=== PATIENT | female | born 1955 | race Caucasian/White ===

== ENCOUNTER 2022-08-12 15:16 | Emergency (ER) | payer MEDICARE, SELFPAY ==
--- NOTE | 2022-08-12 15:20 | XRR_ITS ---
PROCEDURE INFORMATION: Exam: XR Right Ribs with PA Chest Exam date and time: 08/12/2022 4:38 PM Age: 66 years old Clinical indication: Injury or trauma; Fall; Rib area; Sprain or strain; Additional info: Chest and ribs TECHNIQUE: Imaging protocol: Radiologic exam of the Right ribs with PA chest. Views: 3 views COMPARISON: CR XR cervical spine 3V* [id number] 08/12/2022 4:26 PM FINDINGS: Lungs: Unremarkable. No consolidation. Pleural spaces: Unremarkable. No pleural effusion. No pneumothorax. Heart/Mediastinum: Unremarkable. No cardiomegaly. Bones/joints: Unremarkable. XR/XR ribs RT mn 3V w CXR1V [id number] IMPRESSION: No acute findings.
--- NOTE | 2022-08-12 15:21 | ECG_ITS ---
[facility] Test Date: 2022-08-12 Pat Name: Kemi Elder Department: Room: Gender: Female Public Health Technician: : 1955 Requested By: Austin Hayes Order Number: [id number] Angie MD: Tejas Elias M.D. Measurements Intervals [place] Rate: 69 P: 15 DC: 161 QRS: 57 QRSD: 81 T: -83 QT: 385 QTc: 415 Interpretive Statements SINUS RHYTHM ST DEVIATION AND MODERATE T-WAVE ABNORMALITY, CONSIDER INFERIOR ISCHEMIA [-0.1+ mV T-WAVE IN II/aVF] No previous ECG available for comparison Electronically Signed On 08-12-2022 16:50:37 CDT by Tejas Elias M.D. [id number]
[2022-08-12 15:23] VITALS: BP 232/98; PULSE 72; RESP 19; TEMP 36.6; O2SAT 97; BMI 27.4
[2022-08-12 15:32] VITALS: PULSE 75; O2SAT 96
--- NOTE | 2022-08-12 15:35 | ED_ITS ---
HPI - Fall General: Chief Complaint: Fall Stated Complaint: Right side rib pain, face pain Time Seen by Provider: 08/12/22 15:20 History of Present Illness: 58-year-old female was walking outside in a parking lot stumbled on a parking block tripped and fell she [place] landed on her right ribs and her right knee she did not lose consciousness. She is on Plavix she has been awake and alert the whole time no nausea or vomiting she had discomfort on her right knee was unable to walk was brought in by EMS. She has a small abrasion on the bridge of her nose and on the right knee no other injuries. No vomiting no chest pain. She does have chest wall pain with palpation and pain with deep inspiration. MD complaint: fall Onset (ago): minute(s) Fall from: standing Fall witnessed: yes, by family Place fall occurred: street Loss of consciousness: None Prolonged down time: no Context: tripped/slipped Location of injury: face and chest Location of injury - extremities: Right: knee Severity: mild Associated symptoms-after fall: Reports chest pain and difficulty walking; Denies abdominal pain, confusion, headache(s), hematuria, lightheadedness, neck pain, numbness, short of breath, vertigo or weakness Review of Systems Card: Reports: chest pain; Denies: lightheadedness GI: Denies: abdominal pain : Denies: hematuria Musc: Denies: neck pain Neuro: Reports: difficulty walking; Denies: headache(s), vertigo or confusion PFS ED PFSH: Medical History (Updated 08/23/22 @ 09:13 by Austin Durant DO) No significant past medical history Surgical History (Updated 08/23/22 @ 09:13 by Austin Durant DO) No significant past surgical history Physical Exam Const: COMMON NORMALS: no acute distress GENERAL APPEARANCE: cooperative and comfortable ORIENTATION/CONSCIOUSNESS: Yes awake, Yes oriented to person, Yes oriented to place and Yes oriented to time HENMT: COMMON NORMALS: normocephalic, atraumatic, hearing grossly normal bilaterally, external ears normal, EAC's normal, TM's normal bilaterally and Normal nasal mucous membranes and turbinates present HEAD & SCALP: normocephalic and atraumatic NOSE: Normal nasal mucous membranes and turbinates present EXTERNAL EAR: Yes external ears normal EXTERNAL AUDITORY CANAL: EAC's normal TYMPANIC MEMBRANE: TM's normal bilaterally Eye: COMMON NORMALS: Equal, round and reactive pupils present, EOMs intact bilaterally, conjunctivae normal and no scleral icterus CONJUNCTIVA: Yes conjunctivae normal PUPIL: Yes Equal, round and reactive pupils present Neck/C-Spine: COMMON NORMALS: full ROM, no lymphadenopathy, supple and no JVD Resp: COMMON NORMALS: normal respiratory effort, No retractions, No use of accessory muscles and clear to auscultation bilaterally AUSCULTATION: clear to auscultation bilaterally Cardio: COMMON NORMALS: no JVD, regular rate, regular rhythm and No murmurs present (Cardio) RATE: regular rate RHYTHM: regular rhythm GI: COMMON NORMALS: Soft to palpation and No hepatosplenomegaly present AUSCULTATION: Yes normoactive bowel sounds PALPATION: Yes Soft to palpation, No Tenderness to palpation present (GI), No Guarding due to palpation present (GI) and Yes No hepatosplenomegaly present Extremity: COMMON NORMALS: normal to inspection, capillary refill normal, no clubbing, cyanosis or edema, no calf tenderness and no pedal edema Neuro: SENSORIUM/ORIENTATION: Yes oriented to person, Yes oriented to place an d Yes oriented to time Skin: COMMON NORMALS: no rashes or lesions noted GENERAL SKIN EXAM: no rashes or lesions noted Course Vital Signs: Vital signs: Vital Signs Temperature 97.9 F 08/12/22 15:23 Pulse Rate 68 08/12/22 18:50 Respiratory Rate 18 08/12/22 15:52 Blood Pressure 179/77 08/12/22 18:50 Pulse Oximetry 95 08/12/22 18:50 Oxygen Delivery Me thod 08/12/22 15:32 MDM - Fall Medical Decision Making Labs and imaging reviewed no fractures discharge patient home. Tizanidine and diclofenac to use as needed. Patient able ambulate without difficulty. Medical Records I reviewed the patient's medical records. Lab Data I reviewed the patient's lab results. : 08/12/22 15:45 08/12/22 15:45 Radiology Impressions Ribs X-Ray 08/12/22 15:20 IMPRESSION: No acute findings. Knee X-Ray 08/12/22 15:39 IMPRESSION: Mild to moderate tricompartmental osteoarthritis of the knee. Head CT 08/12/22 15:42 IMPRESSION: 1. Nonspecific incompletely imaged masslike lesion lateral left retropharynx/prevertebral space at the C1 level. Comparison with prior studies recommended, if available. Otherwise additional imaging (nonemergent MRI) recommended. 2. Age appropriate supratentorial and infratentorial atrophy. 3. Moderate chronic white matter microvascular ischemic disease. 4. No acute intracranial injury identified. Cervical Spine X-Ray 08/12/22 18:12 IMPRESSION: 1. Negative for fracture or dislocation, however, exam is limited given only lateral images are included, consider further evaluation with AP view. 2. Mid to lower cervical spine [id number] disc space narrowing and degenerative disc calcification. Laboratory Results WBC 6.0 10^3/uL (4.0-10.0) 08/12/22 15:45 RBC 4.64 10^6/uL (4.1-5.3) 08/12/22 15:45 Hgb 13.6 g/dL (11.5-15.3) 08/12/22 15:45 Hct 41.2 % (37.0-47.0) 08/12/22 15:45 MCV 88.8 fl (81-99) 08/12/22 15:45 MCH 29.3 pg (28.0-34.0) 08/12/22 15:45 MCHC 33.0 g/dL (30.0-36.0) 08/12/22 15:45 RDW 12.8 % (12.1-15.1) 08/12/22 15:45 Plt Count 375 10^3/cmm (130-400) 08/12/22 15:45 MPV 9.6 fL (7.4-10.4) 08/12/22 15:45 Neut % (Auto) 50.5 % 08/12/22 15:45 Lymph % (Auto) 38.5 % 08/12/22 15:45 [place] % (Auto) 8.3 % 08/12/22 15:45 Eos % (Auto) 1.3 % 08/12/22 15:45 Baso % (Auto) 0.7 % 08/12/22 15:45 Neut # (Auto) 3.04 10^3/uL (1.8-7.7) 08/12/22 15:45 Lymph # (Auto) 2.3 10^3/uL (0.8-4.8) 08/12/22 15:45 [place] # (Auto) 0.5 10^3/uL (0.2-0.9) 08/12/22 15:45 Eos # (Auto) 0.1 10^3/uL (0.0-0.8) 08/12/22 15:45 Baso # (Auto) 0.0 10^3/uL (0.0-0.1) 08/12/22 15:45 Nucleated RBC % (auto) 0 % 08/12/22 15:45 Nucleated RBCs # 0.0 /100WBC 08/12/22 15:45 Sodium 138 mmol/L (136-145) 08/12/22 15:45 Potassium 4.1 mmol/L (3.5-5.1) 08/12/22 15:45 Chloride 101 mmol/L (98-107) 08/12/22 15:45 Carbon Dioxide 23 mmol/L (22-29) 08/12/22 15:45 Anion Gap 18.1 (5-19) 08/12/22 15:45 BUN 13 mg/dL (8-23) 08/12/22 15:45 Creatinine 0.8 mg/dL (0.5-0.9) 08/12/22 15:45 GFR Calculation 71.3 mL/min (90-130) L 08/12/22 15:45 Glucose 178 mg/dL (65-115) H 08/12/22 15:45 Calculated Osmolality 291 mOsm/kg (285-295) 08/12/22 15:45 Calcium 10.0 mg/dL (8.5-10.5) 08/12/22 15:45 Total Bilirubin 0.4 mg/dL (0.15-1.2) 08/12/22 15:45 AST 30 U/L (0-32) 08/12/22 15:45 ALT 26 U/L (0-33) 08/12/22 15:45 Alkaline Phosphatase 60 U/L (35-105) 08/12/22 15:45 Total Protein 7.7 g/dL (6.6-8.7) 08/12/22 15:45 Albumin 4.5 g/dL (3.5-5.2) 10/21/22 15:45 Globulin 3.2 g/dL (1.3-4.6) 08/12/22 15:45 Discharge Plan Discharge Patient Disposition: Home Clinical Impression: Fall Condition: Stable Prescriptions: New diclofenac sodium 75 mg tablet,delayed release (DR/EC) 75 mg PO Q12H PRN (Reason: pain) Qty: 20 0RF Zanaflex 4 mg capsule 4 mg PO Q8H PRN (Reason: muscle spasticity) Qty: 20 0RF Discharge Orders: Discharge ED (Routine); Ordered 08/12/22 Ordered By: Austin Durant Discharge Diet: Usual diet Discharge Activity: Increase activity as tolerated Patient Instructions: Opioid Safety, Pain Management Activity Restrictions/Additional Instructions: Use diclofenac and tizanidine as needed for pain. Follow-up with your primary care doctor if worsening or symptoms do not improve. Coding Level of Care Code ED Gang Punch Operator for Viviane Kearney
--- NOTE | 2022-08-12 15:39 | XRR_ITS ---
PROCEDURE INFORMATION: Exam: XR Right Knee Exam date and time: 08/12/2022 4:20 PM Age: 66 years old Clinical indication: Pain; Knee; Right TECHNIQUE: Imaging protocol: Radiologic exam of the Right knee. Views: 3 views. COMPARISON: No relevant prior studies available. FINDINGS: Bones/joints: Mild to moderate tricompartmental osteoarthritis of the knee. Soft tissues: Normal. XR/XR knee RT 3V* [id number] IMPRESSION: Mild to moderate tricompartmental osteoarthritis of the knee.
--- NOTE | 2022-08-12 15:42 | CTR_ITS ---
PROCEDURE INFORMATION: Exam: CT Head Without Contrast Exam date and time: 08/12/2022 4:08 PM Age: 66 years old Clinical indication: Injury or trauma; Fall; Blunt trauma (contusions or hematomas); Additional info: Closed head injury TECHNIQUE: Imaging protocol: Computed tomography of the head without contrast. Radiation optimization: All CT scans at this facility use at least one of these dose optimization techniques: automated exposure control; mA and/or kV adjustment per patient size (includes targeted exams where dose is matched to clinical indication); or iterative reconstruction. COMPARISON: No relevant prior studies available. RADIATION DOSE METRICS: Total DLP (mGy-cm): 1185.04 FINDINGS: Brain: Moderate hypoattenuating foci are noted in the posterior superior periatrial and anterior lateral ventricular periventricular white matter bilaterally. Mild bilateral globus pallidus calcifications. No intracranial hemorrhage. No mass or acute cortical infarction identified. Ventricles: Prominence of the ventricular system and subarachnoid spaces is consistent with the patient's age of 66 years. Paranasal sinuses: Visualized sinuses are unremarkable. No fluid levels. Mastoid air cells: Visualized mastoid air cells are well aerated. Bones/joints: See Soft tissues finding. Soft tissues: Nonspecific incompletely imaged masslike lesion lateral left retropharynx/prevertebral space at the C1 level measuring at least 2.4 x 1.9 cm in the transverse dimension. This appears to be separate from the skull base (series 8, image 38). Vasculature: Atherosclerotic calcifications are present involving the carotid artery siphons bilaterally. CT/CT head wo con* [id number] IMPRESSION: 1. Nonspecific incompletely imaged masslike lesion lateral left retropharynx/prevertebral space at the C1 level. Comparison with prior studies recommended, if available. Otherwise additional imaging (nonemergent MRI) recommended. 2. Age appropriate supratentorial and infratentorial atrophy. 3. Moderate chronic white matter microvascular ischemic disease. 4. No acute intracranial injury identified.
--- NOTE | 2022-08-12 15:42 | XRR_ITS ---
PROCEDURE INFORMATION: Exam: XR Cervical Spine Exam date and time: 08/12/2022 4:26 PM Age: 66 years old Clinical indication: Injury or trauma; Fall; Blunt trauma and sprain or strain, cervical ligaments; Additional info: Trauma fall TECHNIQUE: Imaging protocol: Radiologic exam of the cervical spine. Views: Frontal and lateral, 2 views. COMPARISON: CT head wo con* [id number] 08/12/2022 4:08 PM FINDINGS: Bones/joints: No fracture as visualized. . No malalignment. The posterior spinous processes of C4 and caudally are partially excluded. Moderate right C4-C5 and C5-C6 primary facet osteoarthritis. Soft tissues: Unremarkable. XR/XR cervical spine 3V* [id number] IMPRESSION: No fracture as visualized. Repeat lateral image to include the lower posterior spinous processes, and AP open-mouth odontoid view recommended for further evaluation.
[2022-08-12 15:52] VITALS: RESP 18
[2022-08-12] MEDS: morphine 4 mg/mL SDV 1 mL IVP (15:52)
[2022-08-12 16:03] LABS: Basophils % 0.7 %; Eosinophils # 0.1 10^3/uL (0.0-0.8); Eosinophils % 1.3 %; Hematocrit 41.2 % (37.0-47.0); Hemoglobin 13.6 g/dL (11.5-15.3); Lymphocytes # 2.3 10^3/uL (0.8-4.8); Lymphocytes % 38.5 %; Mean Corpuscular Hemoglobin 29.3 pg (28.0-34.0); Mean Corpuscular Volume 88.8 fl (81-99); Mean Platelet Volume 9.6 fL (7.4-10.4); Monocytes # 0.5 10^3/uL (0.2-0.9); Monocytes % 8.3 %; Neutrophils # 3.04 10^3/uL (1.8-7.7); Neutrophils % 50.5 %; Nucleated Red Blood Cells % 0 %; Platelet Count 375 10^3/cmm (130-400); Red Blood Count 4.64 10^6/uL (4.1-5.3); Red Cell Distribution Width 12.8 % (12.1-15.1)
[2022-08-12 16:35] LABS: Alanine Aminotransferase 26 U/L (0-33); Albumin Level 4.5 g/dL (3.5-5.2); Alkaline Phosphatase 60 U/L (35-105); Anion Gap 18.1 (5-19); Aspartate Amino Transferase 30 U/L (0-32); Blood Urea Nitrogen 13 mg/dL (8-23); Carbon Dioxide 23 mmol/L (22-29); Chloride 101 mmol/L (98-107); Globulin 3.2 g/dL (1.3-4.6); Glomerular Filtration Rate 71.3 mL/min (90-130); Glucose 178 mg/dL (65-115); Osmolality Calculated 291 mOsm/kg (285-295); Potassium 4.1 mmol/L (3.5-5.1); Sodium 138 mmol/L (136-145); Total Bilirubin 0.4 mg/dL (0.15-1.2); Total Protein 7.7 g/dL (6.6-8.7)
[2022-08-12 17:32] VITALS: BP 190/95; O2SAT 97
--- NOTE | 2022-08-12 18:12 | XRR_ITS ---
PROCEDURE INFORMATION: Exam: XR Spine; Cervical Exam date and time: 08/12/2022 6:37 PM Age: 66 years old Clinical indication: Injury or trauma; Fall TECHNIQUE: Imaging protocol: XR of the spine. Exam focused on the cervical spine. Views: 1 view. COMPARISON: CR XR cervical spine 3V* [id number] 08/12/2022 4:26 PM FINDINGS: Bones/joints: Mid to lower cervical spine [id number] disc space narrowing and degenerative disc calcification. Soft tissues: Normal. XR/XR cervical spine 1V [id number] IMPRESSION: 1. Negative for fracture or dislocation, however, exam is limited given only lateral images are included, consider further evaluation with AP view. 2. Mid to lower cervical spine [id number] disc space narrowing and degenerative disc calcification.
[2022-08-12 18:50] VITALS: BP 179/77; PULSE 68; O2SAT 95
== END 2022-08-12 19:01 | disposition home or self-care (01) ==
PROVIDERS: Emergency Provider Family Medicine
DX: S00.31XA Abrasion of nose, initial encounter (principal); S80.211A Abrasion, right knee, initial encounter; W18.09XA Striking against other object with subsequent fall, initial encounter
CPT/HCPCS: 70450; 71101; 72020; 72040; 73562; 80053; 85025; 93005; 96374; 99285; J2270

== ENCOUNTER → 2022-11-01 11:05 | Outpatient (BNVA) | payer MEDICARE, SELFPAY | PROVIDERS: Visit Provider Emergency Medicine | DX: J01.00 Acute maxillary sinusitis, unspecified (principal); R68.89 Other general symptoms and signs; H66.002 Acute suppurative otitis media without spontaneous rupture of ear drum, left ear | CPT/HCPCS: 87400 ==

== ENCOUNTER → 2022-11-28 11:08 | Outpatient (BNVA) | payer MEDICARE, SELFPAY | PROVIDERS: Visit Provider Family Medicine | DX: R30.0 Dysuria (principal); E78.5 Hyperlipidemia, unspecified; E11.9 Type 2 diabetes mellitus without complications; I10 Essential (primary) hypertension | CPT/HCPCS: 80053; 80061; 81000; 83036; 83721; 87077; 87086; 87184 ==

== ENCOUNTER → 2022-12-15 15:20 | Outpatient (BNVA) | payer MEDICARE, SELFPAY | PROVIDERS: PCP Family Medicine; Referring Provider Family Medicine; Visit Provider Surgery | DX: K21.9 Gastro-esophageal reflux disease without esophagitis (principal) | CPT/HCPCS: 99203 ==

== ENCOUNTER 2022-12-28 05:27 | Day surgery (SDC) | payer MEDICARE, SELFPAY ==
[2022-12-26 08:14] VITALS: BMI 29.1
[2022-12-28 06:04] VITALS: BP 184/107; PULSE 70; RESP 18; TEMP 36.1; O2SAT 97
[2022-12-28] MEDS: sodium chloride 0.9% 1,000 ML 30 ML IV (06:19)
[2022-12-28 06:26] LABS: Glucose Point of Care 182 mg/dL (70-110)
--- NOTE | 2022-12-28 06:27 | ANES.PREANE2 ---
Pre-Anesthetic Assessment Height/Weight: Height 1.65 m Weight 79.379 kg Temp Pulse Resp BP Pulse Ox O2 Del Method 97 F L 70 18 184/107 97 12/28/22 06:04 12/28/22 06:04 12/28/22 06:04 12/28/22 06:04 12/28/22 06:04 12/28/22 06:04 Preop Diagnosis: GERD Operation Date: 12/28/22 07:00 Proposed Procedures p [id number] egd : K21.9(Not Applicable) - Lukas Jose DO Familial anesthetic complications: none Was Beta Jfef taken within 24 hours: Yes Last intake: Intake Last Liquid Date 12/27/22 Last Liquid Time 20:00 Last Solid Date 12/27/22 Last Solid Time 20:00 Social No alcohol and No tobacco Exam alert, oriented x 3, clear to auscultation bilaterally and regular rate & rhythm Airway Submandibular: within normal limits Cervical ROM: within normal limits Mallampati: Class I Dentition: false Comments: Comments: deviated septum per patient. Left sided mass in neck per patient MRI and CT currently monitoring due to location and nerve involvement. 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.) CV/HEM Arrythmia (PVCs), Hypertension and Murmur None reported Hepatic None reported GI Gastroesophageal Reflux Disease Metabolic Diabetes Mellitus and Hyperlipidemia [facility] [place] None reported Neuropsych Cerebrovascular Accident (2014 right sided numbness face and forearm.) Anesthetic Plan ASA status: 3 Anesthesia: MAC Medications/Allergies Home Medications Medication Instructions Recorded Confirmed Last Taken Type amlodipine 10 mg tablet 10 mg PO DAILY 90 days #90 tabs 11/28/22 12/26/22 12/27/22 Rx benzonatate 100 mg capsule 100 mg PO BID PRN cough 30 days 11/28/22 12/26/22 Unknown Rx #60 caps cetirizine 10 mg tablet (Zyrtec) 10 mg PO DAILY 90 days #90 tabs 11/28/22 12/26/22 12/27/22 Rx clopidogrel 75 mg tablet 75 mg PO DAILY 90 days #90 tabs 11/28/22 12/26/22 12/22/22 Rx ezetimibe 10 mg tablet 10 mg PO DAILY 90 days #90 tabs 11/28/22 12/26/22 12/27/22 Rx fenofibrate nanocrystallized 145 145 mg PO DAILY 90 days #90 tabs 11/28/22 12/26/22 12/27/22 Rx mg tablet fluoxetine 10 mg tablet 10 mg PO DAILY 90 days #90 tabs 11/28/22 12/26/22 12/27/22 Rx gabapentin 300 mg capsule 300 mg PO TID 30 days #90 caps 11/28/22 12/26/22 12/27/22 Rx losartan 100 mg tablet 100 mg PO DAILY 90 days #90 tabs 11/28/22 12/26/22 12/27/22 Rx metformin 1,000 mg tablet 1,000 mg PO BID 90 days #180 tabs 11/28/22 12/26/22 12/27/22 Rx metoprolol succinate 100 mg 100 mg PO BID 90 days #180 tabs 11/28/22 12/26/22 12/28/22 04:00 Rx tablet,extended release 24 hr pantoprazole 40 mg tablet,delayed 40 mg PO BID 6 weeks #84 tabs 12/15/22 12/26/22 12/27/22 Rx release (Protonix) Allergies Allergy/AdvReac Type Severity Reaction Status Date / Time Rnfihhe-HXF-EfF Reductase Allergy Intermediate severe Verified 12/15/22 15:24 Inhibitor hives Current Medications Generic Name Dose Route Start Last Admin Trade Name Freq PRN Reason Stop Dose Admin Sodium Chloride 1,000 mls @ 30 mls/hr 12/28/22 05:45 12/28/22 06:19 Sodium Chloride 0.9% IV 12/29/22 05:44 30 mls/hr .Q24H AMARILYS Administration PFSH Anesthesia Medical History History of trigger finger No significant past medical history Surgical History (Updated 12/15/22 @ 16:32 by Lukas Jose DO) History of appendectomy History of carpal tunnel release History of hemorrhoidectomy Error History of hysterectomy History of rotator cuff surgery Bilateral No significant past surgical history Family History Brother Cancer prostate and liver Hypertension Sister Cancer uterine Diabetes Hypertension Mother Hypertension Stroke Father Hypertension Grandmother Stroke maternal Denies family history of Clotting disorder Chronic kidney disease (CKD) Bleeding disorder Thyroid disease Data Anesthesia Cardiac Studies: No Data to Display
--- NOTE | 2022-12-28 07:02 | W.PM.OPSUD ---
Surgery/Procedure H&P Update DATE OF PROCEDURE: December 28, 2022 DATE H&P PERFORMED: 12/15/22 H&P UPDATE INFORMATION: I have reviewed H&P completed within last 30 days, I have examined patient prior to procedure and No changes to prior documentation PREOP DIAGNOSIS: GERD PLANNED PROCEDURE: Operation Date: 12/28/22 07:00 Proposed Procedures p [id number] egd : K21.9(Not Applicable) - Lukas Jose DO
[2022-12-28 07:21] VITALS: BP 152/67; PULSE 62; RESP 14; TEMP 36.1; O2SAT 94
[2022-12-28 07:34] VITALS: BP 171/74; PULSE 63; RESP 16; O2SAT 95
--- NOTE | 2022-12-28 14:27 | ANE.PACU2 ---
Inpatient post-anesthesia follow up: Airway intact: Yes Vital signs: Temperature 97 F Pulse Rate 63 Respiratory Rate 16 Blood Pressure 171/74 Pulse Oximetry 95 Oxygen Delivery Me thod Room Air Oxygen Flow Rate Fraction of Inspir ed Oxygen Hydration adequate: Yes Nausea and vomiting: No Pain level: 1 Mental status: Baseline
== END 2022-12-28 07:50 | disposition home or self-care (01) ==
PROVIDERS: PCP Family Medicine; Visit Provider Surgery
PROC: 0DJ08ZZ Inspection of Upper Intestinal Tract, Via Natural or Artificial Opening Endoscopic (ICD-10-PCS; CPT 43235; principal; 2022-12-28 07:00)
DX: K29.50 Unspecified chronic gastritis without bleeding (principal); K21.9 Gastro-esophageal reflux disease without esophagitis; E11.9 Type 2 diabetes mellitus without complications; I10 Essential (primary) hypertension; E78.5 Hyperlipidemia, unspecified; Z79.84 Long term (current) use of oral hypoglycemic drugs; Z86.16 Personal history of COVID-19; Z86.73 Personal history of transient ischemic attack (TIA), and cerebral infarction without residual deficits
CPT/HCPCS: 36416; 43239; 82962; 88305; 88342; J2704; J7030

== ENCOUNTER → 2023-01-17 15:48 | Outpatient (BNVA) | payer MEDICARE, SELFPAY | PROVIDERS: PCP Family Medicine; Visit Provider Surgery | DX: K21.9 Gastro-esophageal reflux disease without esophagitis (principal); R10.9 Unspecified abdominal pain | CPT/HCPCS: 99024; 99212 ==

== ENCOUNTER → 2023-02-07 13:30 | Outpatient (BNVA) | payer MEDICARE, SELFPAY | PROVIDERS: PCP Family Medicine; Visit Provider Nurse Practitioner Family | DX: R10.9 Unspecified abdominal pain (principal) | CPT/HCPCS: 80053; 81000; 83690; 85025 ==

== ENCOUNTER → 2023-02-20 11:19 | Outpatient (BNVA) | payer MEDICARE, SELFPAY | PROVIDERS: PCP Family Medicine; Visit Provider Family Medicine | DX: K21.9 Gastro-esophageal reflux disease without esophagitis (principal); B37.31 Acute candidiasis of vulva and vagina; M25.551 Pain in right hip; M25.552 Pain in left hip; G89.29 Other chronic pain; M54.50 Low back pain, unspecified; M54.9 Dorsalgia, unspecified; I10 Essential (primary) hypertension; Z86.73 Personal history of transient ischemic attack (TIA), and cerebral infarction without residual deficits; E78.2 Mixed hyperlipidemia; E11.9 Type 2 diabetes mellitus without complications; Z87.440 Personal history of urinary (tract) infections | CPT/HCPCS: 72100; 73523 ==

== ENCOUNTER → 2023-02-24 13:28 | Outpatient (BNVA) | payer MEDICARE, SELFPAY | PROVIDERS: PCP Family Medicine; Visit Provider Family Medicine | DX: R30.0 Dysuria (principal) | CPT/HCPCS: 81000; 87086 ==

== ENCOUNTER → 2023-03-15 09:56 | Outpatient (BNVA) | payer MEDICARE, SELFPAY | PROVIDERS: PCP Family Medicine; Visit Provider Anesthesiology Pain Medicine | DX: M51.16 Intervertebral disc disorders with radiculopathy, lumbar region (principal); M25.551 Pain in right hip | CPT/HCPCS: 99204 ==

== ENCOUNTER 2023-04-12 12:40 | Outpatient (CLI) | payer MEDICARE, SELFPAY ==
--- NOTE | 2023-04-12 13:00 | MR_ITS ---
WS: [id number] MRI LUMBAR SPINE NONCONTRAST HISTORY: M51.16 - Intervertebral disc disorders with radiculopathy... COMPARISON: None available. TECHNIQUE: Sagittal and axial multisequence imaging is submitted. Normal lumbar alignment. There is a small amount of reactive marrow edema in the adjacent L3-4 endpla kristopher. No fractures. Mild disc space narrowing at L3-4 and L4-5. Conus terminates normally at L1-2 disc level. L1-L2: Normal. L2-L3: Very shallow LEFT foraminal disc protrusion. This disc protrusion does minimally contact the e xiting LEFT L2 nerve root. No significant stenosis. L3-L4: Moderate diffuse annular disc bulging. Shallow central disc protrusion. There are additional s maller, shallow disc protrusions in the foramen. Encroachment upon the ventral thecal sac with efface ment of CSF. There is mild to moderate central with bilateral subarticular recess and mild foraminal stenosis. Disc contact of on the traversing L4 nerve roots. There is fluid in the facet joints. L4-L5: Annular disc bulge with a moderate central disc protrusion. Deformity of the ventral thecal sa c. Marked ligamentum flavum and facet arthritis. Moderate to severe central with bilateral subarticul ar recess stenosis. Greater encroachment and deformity on the traversing RIGHT L5 nerve root. Mild fo raminal stenosis. L5-S1: Very shallow RIGHT paracentral disc protrusion. No stenosis. No significant nerve root contact . MR/MR lumbar spine wo con* [id number] IMPRESSION: 1. L4-5: Moderate to severe central with bilateral subarticular recess and mil d foraminal stenosis. Most significant encroachment upon the traversing RIGHT L 5 nerve root. 2. L3-4: Mild to moderate central with bilateral subarticular recess and mild foraminal stenosis at L3-4. There is disc contacting the traversing L4 nerve ro ots. Additional shallow central disc protrusion and bilateral foraminal disc pr otrusions. 3. Small LEFT foraminal disc protrusion at L2-3 with mild contact on the exiti ng LEFT L2 nerve root.
== END 2023-04-12 12:41 | disposition home or self-care (01) ==
LOC: RAD 12:43
PROVIDERS: PCP Family Medicine; Visit Provider Anesthesiology Pain Medicine
DX: M51.16 Intervertebral disc disorders with radiculopathy, lumbar region (principal); M48.061 Spinal stenosis, lumbar region without neurogenic claudication
CPT/HCPCS: 72148

== ENCOUNTER → 2023-05-01 09:54 | Outpatient (BNVA) | payer MEDICARE, SELFPAY | PROVIDERS: PCP Family Medicine; Visit Provider Anesthesiology Pain Medicine | DX: G89.29 Other chronic pain (principal); M51.16 Intervertebral disc disorders with radiculopathy, lumbar region; M16.11 Unilateral primary osteoarthritis, right hip | CPT/HCPCS: 99214 ==

== ENCOUNTER → 2023-05-16 13:33 | Outpatient (BNVA) | payer MEDICARE, SELFPAY | PROVIDERS: PCP Family Medicine; Visit Provider Anesthesiology Pain Medicine | DX: G89.29 Other chronic pain (principal); M51.16 Intervertebral disc disorders with radiculopathy, lumbar region; M16.0 Bilateral primary osteoarthritis of hip | CPT/HCPCS: 64483; 64484; J1100; J3490 ==

== ENCOUNTER → 2023-06-07 12:38 | Outpatient (BNVA) | payer MEDICARE, SELFPAY | PROVIDERS: PCP Family Medicine; Visit Provider Anesthesiology Pain Medicine | DX: M54.16 Radiculopathy, lumbar region (principal) | CPT/HCPCS: 64483; 64484; J1100; J3490 ==

== ENCOUNTER → 2023-06-21 08:46 | Outpatient (BNVA) | payer MEDICARE, SELFPAY | PROVIDERS: PCP Family Medicine; Visit Provider Anesthesiology Pain Medicine | DX: G89.29 Other chronic pain; M25.551 Pain in right hip; M51.16 Intervertebral disc disorders with radiculopathy, lumbar region | CPT/HCPCS: 99214 ==

== ENCOUNTER → 2023-07-03 13:57 | Outpatient (BNVA) | payer MEDICARE, SELFPAY | PROVIDERS: PCP Family Medicine; Visit Provider Family Medicine | DX: N39.0 Urinary tract infection, site not specified (principal); K21.9 Gastro-esophageal reflux disease without esophagitis; I10 Essential (primary) hypertension; E11.9 Type 2 diabetes mellitus without complications; G89.4 Chronic pain syndrome; M54.9 Dorsalgia, unspecified; F32.9 Major depressive disorder, single episode, unspecified; B37.31 Acute candidiasis of vulva and vagina; E78.5 Hyperlipidemia, unspecified; Z86.73 Personal history of transient ischemic attack (TIA), and cerebral infarction without residual deficits; J30.2 Other seasonal allergic rhinitis; E78.2 Mixed hyperlipidemia; R05.3 Chronic cough | CPT/HCPCS: 71046; 80053; 80061; 81000; 83036; 83721; 87077; 87086; 87184 ==

== ENCOUNTER 2023-07-17 13:36 | Emergency (ER) | payer MEDICARE, SELFPAY ==
[2023-07-17 13:47] VITALS: BP 197/79; PULSE 75; RESP 16; TEMP 36.6; O2SAT 97; BMI 29.0
--- NOTE | 2023-07-17 14:18 | USCV_ITS ---
Elder Kemi Age: 67 Gender: F : 1955 Exam Date: 07/17/2023 14:42 Ordering Phys: Shari Traylor Technologist: Andrzej Zhu [place] [facility] [place]ication: rt leg pain and swelling pain after stepping off tractor PROCEDURES: Venous duplex imaging was performed in only the right lower extremity. The following venous structures were evaluated: common femoral vein, profunda vein, proximal portion of the greater saphenous vein, superficial femoral vein, and the popliteal vein. In addition, the posterior tibial and peroneal trunk were evaluated. FINDINGS: Normal 2-D Doppler and augmentation and compressibility throughout the lower extremity venous structures. Additional imaging through the proximal calf veins also reveals no thrombus. Limited evaluation of the greater saphenous vein is patent with no thrombus. Complex collection right popliteal fossa. CONCLUSIONS No DVT right lower extremity. Right popliteal fossa complex collection, complex Perdomo cyst with hemorhage vs ruptured Perdomo cyst. Dr. Kelly Weller DO (Electronically Signed) Final Date: 17 July 2023 15:16 S
--- NOTE | 2023-07-17 14:55 | W.ED.EXTPRO ---
HPI - Extremity Problem General: Chief complaint: Extremity Problem,Nontraumatic Stated complaint: swollen legs Time Seen by Provider: 07/17/23 14:25 Source: patient Mode of arrival: ambulatory Limitations: no limitations History of Present Illness: Patient is a nice 67-year-old female presents to ED today with a complaint of pain and swelling to the right knee and calf. She states about a week ago she began having what she thought was a charley horse to the leg. She states about a week prior to that she did injure the knee and felt like something pulled/pop to the medial aspect. Patient states she began getting worried when the calf was swollen and was concerned about a possible blood clot. She denies chest pain, shortness of breath, difficulty breathing. She states pain seems to be worse with ambulation but states once I get up and get moving then pain seems to ease up. MD Complaint: extremity pain, extremity swelling, joint swelling and joint pain Pain Consistency: constant Location: right, lower extremity and knee Radiation: none Relieving factors: immobilization Exacerbating factors: range of motion, weight bearing and walking Associated symptoms: Reports no associated symptoms; Deny chest pain, fever(s) or rash Review of Systems Const: Denies: fever(s), chills, body aches, fatigue or malaise Card: Denies: chest pain Resp: Denies: dyspnea Musc: Reports: extremity pain (R calf), extremity swelling (R calf), joint pain (R knee) and joint swelling (R knee); Denies: neck pain, back pain, joint redness or joint warmth Skin/Breast: Denies: rash Neuro: Reports: difficulty walking (secondary to pain); Denies: numbness in extremities, weakness in extremities or sensory changes PFS ED PFSH: Medical History History of trigger finger No significant past medical history Surgical History History of appendectomy History of carpal tunnel release History of hemorrhoidectomy Error History of hysterectomy History of rotator cuff surgery Bilateral No significant past surgical history Family History Brother Cancer prostate and liver Hypertension Sister Cancer uterine Diabetes Hypertension Mother Hypertension Stroke Father Hypertension Grandmother Stroke maternal Denies family history of Clotting disorder Chronic kidney disease (CKD) Bleeding disorder Thyroid disease Physical Exam Const: COMMON NORMALS: no acute distress, average body habitus, patient oriented x3, no limitations, healthy appearing, alert and well nourished Resp: COMMON NORMALS: normal respiratory effort and clear to auscultation bilaterally AUSCULTATION: clear to auscultation bilaterally Cardio: COMMON NORMALS: regular rate and regular rhythm RATE: regular rate RHYTHM: regular rhythm Extremity: COMMON NORMALS: capillary refill normal and no pedal edema GENERAL: Yes normal exam except as noted RIGHT LOWER EXTREMITY: Yes knee joint and Yes lower leg OTHER: TTP and swelling noted to R popliteal fossa and into R calf; she has no complaints of numbness and sensory appears normal; no foot drop; she has no weakness noted; nothing to suggest anterior/posterior compartment syndromes; distal pulses and cap refill are normal Neuro: COMMON NORMALS: patient oriented x3, moves all extremities, no focal motor deficits and no sensory deficits noted SENSORIUM/ORIENTATION: Yes alert Skin: NARRATIVE SKIN EXAM: no ecchymosis noted Course Vital Signs: Vital signs: Vital Signs Temperature 97.8 F 07/17/23 13:47 Pulse Rate 75 07/17/23 13:47 Respiratory Rate 16 07/17/23 13:47 Blood Pressure 197/79 07/17/23 13:47 Pulse Oximetry 97 07/17/23 13:47 Oxygen Delivery Me thod Room Air 07/17/23 13:47 MDM - Extremity (Nontraumatic) Medical Decision Making Ultrasound of the right lower extremity obtained and shows no DVT. She does have a right popliteal fossa complex collection that could be a complex Perdomo's cyst with hemorrhage versus a ruptured Perdomo's cyst. Patient at this time does not have any complications related to this including nerve entrapment, compartment syndrome, or ischemia. Recommend she ice and elevate the extremity. We will place her on oral steroids. We will get her follow-up with orthopedics. She states she has a walker she can use to help with ambulation. Strict return to ED precautions given. All radiology interpretation(s) finalized by discharge Discharge Plan Discharge Patient Disposition: Home Clinical Impression: Ruptured Bakers cyst Condition: Stable Prescriptions: New prednisone 10 mg tablet 60 mg PO DAILY 5 Days Qty: 30 0RF No Action nitrofurantoin macrocrystal 100 mg capsule 100 mg PO bid 7 Days Qty: 14 0RF Rx Instructions: must administer with a meal/food benzonatate 100 mg capsule 100 mg PO BID PRN (Reason: cough) 30 Days Qty: 60 0RF acetaminophen 650 mg tablet extended release 650 mg PO Q12H amoxicillin-pot clavulanate 875-125 mg tablet 1 tab PO BID 7 Days Qty: 14 0RF omeprazole 40 mg capsule,delayed release(DR/EC) 40 mg PO DAILY 90 Days Qty: 90 1RF metoprolol succinate 100 mg tablet extended release 24 hr 100 mg PO BID 90 Days Qty: 180 1RF metformin 1,000 mg tablet 1,000 mg PO BID 90 Days Qty: 180 1RF losartan 100 mg tablet 100 mg PO DAILY 90 Days Qty: 90 1RF gabapentin 300 mg capsule 300 mg PO TID 30 Days Qty: 90 5RF fluoxetine 10 mg tablet 10 mg PO DAILY 90 Days Qty: 90 1RF fluconazole [Diflucan] 150 mg tablet 150 mg PO Q3D Qty: 2 1RF Rx Instructions: may repeat second dose 72 hrs after first dose if symptoms persist fenofibrate nanocrystallized 145 mg tablet 145 mg PO DAILY 90 Days Qty: 90 1RF ezetimibe 10 mg tablet 10 mg PO DAILY 90 Days Qty: 90 1RF clopidogrel 75 mg tablet 75 mg PO DAILY 90 Days Qty: 90 1RF Hold Instructions: Resume on 12/31/22. cetirizine [Zyrtec] 10 mg tablet 10 mg PO DAILY 90 Days Qty: 90 1RF Rx Instructions: 340B amlodipine 10 mg tablet 10 mg PO DAILY 90 Days Qty: 90 1RF Discharge Orders: Discharge ED (Routine); Ordered 07/17/23 Ordered By: Shari Traylor Referrals: Mabel Petty MD [Primary Care Provider] - Patient Instructions: Perdomo's Cyst, Perdomo Cyst (ED) Activity Restrictions/Additional Instructions: As we discussed you need to ice and elevate the extremity as much as possible. You may continue taking [id number] Tylenol and/or ibuprofen. We will place you on steroids. Case management should reach out to you shortly to set you up with your follow-up orthopedic appointment. You need to return to the emergency department immediately for numbness, tingling, loss of sensation, pallor/coolness to the extremity. You need to return for any noted weakness, foot drop, severe pain in the calf with movement of your foot or toes, or any other concerns you may have. Coding Level of Care Code ED [employer]ating [employer] Operator for Viviane Kearney
--- NOTE | 2023-07-18 08:44 | PC.SOCIAL ---
Ortho Referral Referral to ortho at this time. Clinic to contact patient with appt date/time.
== END 2023-07-17 15:56 | disposition home or self-care (01) ==
PROVIDERS: Emergency Provider Physician Assistant; PCP Family Medicine
DX: M66.0 Rupture of popliteal cyst (principal); Z79.02 Long term (current) use of antithrombotics/antiplatelets; Z79.84 Long term (current) use of oral hypoglycemic drugs
CPT/HCPCS: 81000; 87077; 87086; 87184; 93971; 99284

== ENCOUNTER → 2023-07-18 14:41 | Outpatient (BNVA) | payer MEDICARE, SELFPAY | PROVIDERS: PCP Family Medicine; Visit Provider Anesthesiology Pain Medicine | DX: M54.16 Radiculopathy, lumbar region (principal); G89.29 Other chronic pain | CPT/HCPCS: 64483; 64484; J1100; J3490 ==

== ENCOUNTER → 2023-08-01 10:19 | Outpatient (BNVA) | payer MEDICARE, SELFPAY | PROVIDERS: PCP Family Medicine; Visit Provider Anesthesiology Pain Medicine | DX: G89.29 Other chronic pain; M16.0 Bilateral primary osteoarthritis of hip; M51.16 Intervertebral disc disorders with radiculopathy, lumbar region | CPT/HCPCS: 99214 ==

== ENCOUNTER 2023-08-04 13:00 | Outpatient (CLI) | payer MEDICARE, SELFPAY ==
--- NOTE | 2023-08-04 13:08 | USCV_ITS ---
Kemi Elder Age: 67 Gender: F : 1955 Exam Date: 08/04/2023 14:34 Ordering Phys: Keshia Mckeon NP Technologist: MALIK Exam Location: [place] Indication: MURMUR, SHORTNESS OF BREATH BP: 151 / 73 HR: 59 Rhythm: Sinus Technical Quality: Adequate MEASUREMENTS (Male / Female) Normal Values 2D ECHO LVOT Diameter 2.0 cm LV Ejection Fraction MOD 2C 71.0 % LV Ejection Fraction 2C AL 72.6 % LA Diameter 3.7 cm LA Width 3.5 cm LA Height 4.3 cm RA Width 3.0 cm RA Height 4.6 cm Aorta at Sinotubular Diameter 1.9 cm IVC Diameter 1.7 cm M-MODE Aortic Annulus Diameter 2.8 cm LA Ao Ratio MM 1.3 MV E Point Septal Separation 0.6 cm DOPPLER AV Peak Velocity 233.0 cm/s LVOT Peak Velocity 122.0 cm/s AV Area Cont Eq vti 1.5 cm squared AV Area Cont Eq pk 1.6 cm squared MV Peak Velocity 134.0 cm/s MV Area PHT 2.9 cm squared Mitral E to A Ratio 1.0 MV E' Velocity 65.5 cm/s Mitral E to MV E' Ratio 18.3 Mitral E to LV E' Lateral Ratio 18.5 Mitral E to LV E' Septal Ratio 18.0 TR Peak Velocity 245.1 cm/s TR Peak Gradient 24.0 mmHg TR Mean Velocity 202.7 cm/s TR Mean Gradient 17.2 mmHg TR Velocity Time Integral 79.4 cm TV Peak E Velocity 66.0 cm/s Right Atrial Pressure 3.0 mmHg Pulmonary Artery Systolic Pressu 27.0 mmHg PV Peak Velocity 155.0 cm/s RV Acceleration Time 0.2 s RV Ejection Time 0.3 s RV AcT/ET 0.5 FINDINGS Left Ventricle Normal left ventricular size and systolic function, EF 69 %. Moderate left ventricular hypertrophy. No regional wall motion abnormalities. Grade I/IV diastolic dysfunction (abnormal relaxation filling pattern), normal to mildly elevated filling pressures. Right Ventricle The right ventricle is normal in size and function. Right Atrium The right atrium is normal in size. Left Atrium Mildly increased left atrial size. Mitral Valve Mild mitral annular calcification. Trace mitral valve regurgitation. Aortic Valve Mild aortic valve stenosis, mean gradient 11 mmHg, KATHLEEN 1.5 cm squared. Tricuspid Valve Trace tricuspid valve regurgitation. Pulmonic Valve No gross abnormalities noted Pericardium Normal pericardium without effusion. Aorta Normal ascending aorta dimension. IVC Normal inferior vena cava. CONCLUSIONS Normal left ventricular size and systolic function, EF 69 %. Moderate left ventricular hypertrophy. No regional wall motion abnormalities. Grade I/IV diastolic dysfunction (abnormal relaxation filling pattern), normal to mildly elevated filling pressures. Mildly increased left atrial size. Mild mitral annular calcification. Trace mitral valve regurgitation. Mild aortic valve stenosis, mean gradient 11 mmHg, KATHLEEN 1.5 cm squared. Peak velocity of 2.33 M/s Trace tricuspid valve regurgitation. There is no pericardial effusion. There are no intracardiac masses. No similar previous studies are available for comparison Dr Tejas Elias MD [facility] (Electronically Signed) Final Date: 04 August 2023 20:10 S
--- NOTE | 2023-08-04 13:08 | USCV_ITS ---
Elder Kemi Age: 67 Gender: F : 1955 Exam Date: 08/04/2023 14:14 Ordering Phys: Keshia Mckeon NP Technologist: MALIK Exam Location: [facility] – [place] Indication: BRUIT Risk Factors: Previous Vascular Surgery: Right Brachial BP: / Left Brachial BP: / Right Left Velocity (cm/s) Spectral Plaque Velocity (cm/s) Spectral Plaque Syst/Diast Broadening Syst/Diast Broadening 88.90/ 17.90 Prox CCA 110.60/ 21.90 90.90/ 11.70 Mid CCA 140.70/ 14.50 113.60/17.90 Distal CCA 107.80/ 14.50 164.50/25.60 Prox ICA 72.60 / 11.10 127.10/27.20 Mid ICA 101.70/ 18.80 102.00/22.90 Distal ICA 76.00 / 17.10 400.40 ECA 111.10 1.45 ICA/CCA 0.72 Antegrade Vertebral Antegrade 78.80/ 21.10 cm/s 35.00/ 11.10 cm/s Tri Subclavian Tri 336.5 395.9 0 0 FINDINGS Comparison: none available. No significant elevation of systolic or diastolic velocities. Diffuse bilateral scattered calcified plaque and intimal thickening throughout the common carotid arteries and extending through the bifurcation. Antegrade vertebral arteries. Right ECA stenosis. CONCLUSIONS Bilateral ICA stenosis less than 50%. Diffuse carotid plaque. Right ECA stenosis. Dr. Kelly Weller DO (Electronically Signed) Final Date: 04 August 2023 16:23 S
== END 2023-08-04 13:01 | disposition home or self-care (01) ==
LOC: RAD 13:00
PROVIDERS: PCP Family Medicine; Visit Provider Physician Assistant
DX: R09.89 Other specified symptoms and signs involving the circulatory and respiratory systems (principal); R01.1 Cardiac murmur, unspecified; I10 Essential (primary) hypertension; R07.9 Chest pain, unspecified; R53.1 Weakness
CPT/HCPCS: 93306; 93880

== ENCOUNTER → 2023-08-08 14:36 | Outpatient (BNVA) | payer MEDICARE, SELFPAY | PROVIDERS: PCP Family Medicine; Referring Provider Nurse Practitioner Family; Visit Provider Internal Medicine Cardiovascular Disease | DX: I10 Essential (primary) hypertension (principal); E78.2 Mixed hyperlipidemia; I35.0 Nonrheumatic aortic (valve) stenosis; R07.89 Other chest pain; I69.398 Other sequelae of cerebral infarction; R20.9 Unspecified disturbances of skin sensation | CPT/HCPCS: 99204 ==

== ENCOUNTER 2023-10-06 07:49 | Outpatient (CLI) | payer MEDICARE, SELFPAY ==
--- NOTE | 2023-10-06 08:30 | USCV_ITS ---
Kemi Elder Age: 67 Gender: F : 1955 Exam Date: 10/06/2023 07:55 Ordering Phys: Celia Mari MD ([email or web address]) Technologist: MALIK [place] [facility] [place]: HYPERTENSION Aortic Velocity @ SMA (cm/s) 174 RIGHT KIDNEY LEFT KIDNEY Velocity (cm/s) Velocity (cm/s) Sys/Jeffery Sys/Jeffery Resistive Index Resistive Index 51.9 / 11.9 0.77 Proximal Renal Artery 35.8 / 9.0 0.75 56.7 / 12.5 0.78 Mid Renal Artery 32.2 / 9.5 0.70 48.3 / 10.7 0.78 Distal Renal Artery 31.0 / 8.4 0.73 68.6 / 14.3 0.79 Hilar 56.0 / 10.4 0.81 126.0 / 27.0 0.79 Upper Pole 61.6 / 10.9 0.82 92.0 / 19.7 0.79 Mid Pole 94.7 / 16.5 0.83 82.0 / 17.3 0.79 Lower Pole 94.1 / 12.2 0.87 0.30 Renal Aortic Ratio 0.21 Accleration Index (cm/sec2) 690.00 Hilar 419.00 813.00 Upper Pole 349.00 533.00 Mid Pole 914.00 780.00 Lower Pole 590.00 113.2 Kidney Length (mm) 118.1 CONCLUSIONS No sonographic evidence of hemodynamically significant renal artery stenosis bilaterally. Normal color flow Doppler, peak systolic velocities, Renal/Aortic peak systolic velocity ratio and resistive indices noted in bilateral main, segmental and interlobar renal arteries. No hydronephrosis in either kidney Adams Mathur MD (Electronically Signed) Final Date: 06 October 2023 16:22 S
== END 2023-10-06 07:50 | disposition home or self-care (01) ==
LOC: RAD 07:49
PROVIDERS: PCP Family Medicine; Visit Provider Internal Medicine Cardiovascular Disease
DX: I10 Essential (primary) hypertension (principal)
CPT/HCPCS: 93975

== ENCOUNTER → 2023-10-10 09:26 | Outpatient (BNVA) | payer MEDICARE, SELFPAY | PROVIDERS: PCP Family Medicine; Visit Provider Family Medicine | DX: K21.9 Gastro-esophageal reflux disease without esophagitis (principal); R05.3 Chronic cough; Z87.891 Personal history of nicotine dependence; L98.9 Disorder of the skin and subcutaneous tissue, unspecified; E11.9 Type 2 diabetes mellitus without complications; I10 Essential (primary) hypertension; L57.0 Actinic keratosis | CPT/HCPCS: 80048; 83036 ==

== ENCOUNTER → 2024-03-21 11:24 | Outpatient (BNVA) | payer MEDICARE, SELFPAY | PROVIDERS: PCP Family Medicine; Visit Provider Family Medicine | DX: E11.9 Type 2 diabetes mellitus without complications (principal); I10 Essential (primary) hypertension | CPT/HCPCS: 80053; 83036; 85025 ==

== ENCOUNTER → 2024-05-06 09:21 | Outpatient (BNVA) | payer MEDICARE, SELFPAY | PROVIDERS: PCP Family Medicine; Visit Provider Nurse Practitioner Family | DX: I35.0 Nonrheumatic aortic (valve) stenosis (principal); I10 Essential (primary) hypertension; Z87.891 Personal history of nicotine dependence | CPT/HCPCS: 99214 ==

== ENCOUNTER → 2024-08-20 10:22 | Outpatient (BNVA) | payer MEDICARE, SELFPAY | PROVIDERS: PCP Family Medicine; Visit Provider Family Medicine | DX: G47.00 Insomnia, unspecified (principal); F43.21 Adjustment disorder with depressed mood; E11.9 Type 2 diabetes mellitus without complications | CPT/HCPCS: 80053; 80061; 83036 ==

== ENCOUNTER → 2025-01-13 14:49 | Outpatient (BNVA) | payer MEDICARE, SELFPAY | PROVIDERS: PCP Family Medicine; Visit Provider Family Medicine | DX: E11.9 Type 2 diabetes mellitus without complications (principal); R53.83 Other fatigue | CPT/HCPCS: 80053; 82607; 83036; 84443; 85025 ==

== ENCOUNTER 2025-02-18 10:40 | Outpatient (CLI) | payer MEDICARE, SELFPAY ==
--- NOTE | 2025-02-18 11:15 | USCV_ITS ---
Kemi Elder Age: 69 Gender: F : 1955 Exam Date: 02/18/2025 10:56 Ordering Phys: Mabel Petty MD Technologist: GRABIEL [place] [facility] [place]: Aortic stenosis BP: 162 / 84 HR: 69 Rhythm: Sinus Technical Quality: Adequate MEASUREMENTS (Male / Female) Normal Values 2D ECHO LV Diastolic Diameter PLAX 4.3 cm 4.2 - 5.9 / 3.9 - 5.3 cm IVS Diastolic Thickness 1.2 cm 0.6 - 1.0 / 0.6 - 0.9 cm IVS Systolic Thickness 1.8 cm LVPW Diastolic Thickness 1.2 cm 0.6 - 1.0 / 0.6 - 0.9 cm LVPW Systolic Thickness 2.2 cm LVOT Diameter 1.8 cm LV Ejection Fraction 2D Teich 60.0 % LV Ejection Fraction MOD 4C 70.2 % LV Ejection Fraction MOD 2C 67.7 % LV Ejection Fraction 2C AL 70.4 % LA Diameter 3.3 cm RA Systolic Volume 4C AL 27.6 ml RA Systolic Volume 4C MOD 27.4 ml LA Sys Volume AL 59.8 cm cubed LA Sys Volume Index AL 29.6 cm cubed/m squared Aorta at Sinotubular Diameter 2.8 cm IVC Diameter 1.6 cm M-MODE LA Ao Ratio MM 1.7 AV Cusp Separation MM 1.2 cm DOPPLER AV Peak Velocity 193.3 cm/s LVOT Peak Velocity 101.0 cm/s AV Area Cont Eq vti 1.5 cm squared AV Area Cont Eq pk 1.4 cm squared MV Peak Velocity 124.0 cm/s MV Area PHT 3.5 cm squared Mitral E to A Ratio 0.9 TR Peak Velocity 135.0 cm/s TR Peak Gradient 7.3 mmHg TV Peak E Velocity 73.0 cm/s FINDINGS Left Ventricle Left ventricle is normal in size. LV systolic function is normal with EF of 60-65%. No regional wall motion abnormalities are seen. Diastolic function is abnormal Right Ventricle Normal in size and function Right Atrium Normal in size Left Atrium Normal in size Mitral Valve Moderate mitral annular calcification. Trace mitral regurgitation Aortic Valve Structurally normal aortic valve. Mild aortic stenosis with aortic valve area of 1.51cm2 and mean gradient across aortic valve of 8.2mmHg. Tricuspid Valve Mild tricuspid regurgitation. Insufficient TR jet to calculate RVSP Pulmonic Valve Not well visualized Pericardium Normal Aorta Normal in size IVC Appears to be normal CONCLUSIONS LV systolic function is normal with EF of 60-65% Diastolic function is abnormal Trace mitral regurgitation Mild aortic stenosis Mild tricuspid reurgitation Compared to prior echocardiogram from 07/2023, no significant changes are seen. Kevin Samano MD (Electronically Signed) Final Date: 26 Feb 2025 09:49 S
== END 2025-02-18 10:41 | disposition home or self-care (01) ==
LOC: RAD 10:42
PROVIDERS: PCP Family Medicine; Visit Provider Family Medicine
DX: I35.0 Nonrheumatic aortic (valve) stenosis (principal); R93.1 Abnormal findings on diagnostic imaging of heart and coronary circulation; I34.81 Nonrheumatic mitral (valve) annulus calcification; I07.1 Rheumatic tricuspid insufficiency
CPT/HCPCS: 93306